=== PATIENT | male | born 1990 | race Two or more races ===

== ENCOUNTER 2016-11-27 01:34 | Emergency (ER) | payer OTHER ==
[~2016-11-27] VITALS: Ht 167.6 cm; Wt 63.5 kg
[2016-11-27 02:23] LABS: CONDITION Y; Hematocrit 41.2 % (41.0-53.0); Mean Corpuscular Hemoglobin 30.3 pg (28.0-32.0); Mean Corpuscular Hgb Conc. 33.9 g/dL (32.0-36.0); Mean Corpuscular Volume 89.5 fL (80.0-100.0); Mean Platelet Volume 8.6 fL (7.4-10.4); Platelet Count (auto) 255 10^3/uL (140-450); Red Cell Distribution Width 14.6 % (11.6-16.0); White Blood Cell 5.2 10^3/uL (4.4-10.8)
[2016-11-27 02:28] LABS: Metamyelocytes % 0; Myelocytes % 0; Promyelocytes % 0; Reactive Lymphocytes 0
[2016-11-27 02:31] LABS: Urine Bilirubin Negative (Negative); Urine Color Yellow (Yellow); Urine Glucose Normal (Normal); Urine Granular Cast MOD /lpf (0); Urine Hyaline Cast FEW /lpf (0 - 2); Urine Ketone Negative (Negative); Urine Mucus FEW (None Seen); Urine Nitrite Negative (Negative); Urine RBC 4 /hpf (0 - 3); Urine Squamous Epithelial Cell FEW /hpf (<5); Urine Urobilinogen Normal (Negative); Urine pH 5.5 (5.0-8.0)
[2016-11-27 02:32] LABS: Urine Blood 1+ /uL (Negative)
[2016-11-27 02:37] LABS: Albumin 4.1 g/dL (3.4-5.0); BUN/Creatinine Ratio 13.8; Potassium 4.1 mmol/L (3.5-5.1)
[2016-11-27 02:40] LABS: Bilirubin, Total 0.7 mg/dL (0.2-1.0)
[2016-11-27 02:41] LABS: Platelet Estimate Adequate; RBC Morphology Normal
[2016-11-27 08:42] VITALS: BP 118/98
[2016-11-27] MEDS ORDERED: TETANUS-DIPTH-ACEL PERTUSSIS 0.5ML SYRG IM ONE (09:15)
== END 2016-11-27 09:12 | disposition home or self-care (01) ==
LOC: ER 01:34
DX: S20.211A Contusion of right front wall of thorax, initial encounter (principal); F10.120 Alcohol abuse with intoxication, uncomplicated; F17.210 Nicotine dependence, cigarettes, uncomplicated; J45.909 Unspecified asthma, uncomplicated; V49.49XA Driver injured in collision with other motor vehicles in traffic accident, initial encounter; Y93.89 Activity, other specified; Y99.8 Other external cause status; Y92.410 Unspecified street and highway as the place of occurrence of the external cause
CPT/HCPCS: 36415; 70450; 71010; 71101; 71250; 72125; 74176; 80053; 80307; 80320; 81001; 85007; 85027

== ENCOUNTER 2021-12-01 20:56 | Emergency (ER) | payer MEDICAID, OTHER ==
[~2021-12-01] VITALS: Ht 165.1 cm; Wt 63.5 kg
[2021-12-01 20:56] VITALS: BP 143/96
== END 2021-12-02 04:13 | disposition left against medical advice (07) ==
LOC: ER 20:56
DX: S61.012A Laceration without foreign body of left thumb without damage to nail, initial encounter (principal); Z53.21 Procedure and treatment not carried out due to patient leaving prior to being seen by health care provider; W26.8XXA Contact with other sharp object(s), not elsewhere classified, initial encounter; Y93.89 Activity, other specified; Y92.89 Other specified places as the place of occurrence of the external cause; Y99.8 Other external cause status

== ENCOUNTER 2022-02-05 04:27 | Emergency (ER) | payer MEDICAID ==
[~2022-02-05] VITALS: Ht 165.1 cm; Wt 68.2 kg
[2022-02-05 04:36] VITALS: BP 127/93
[2022-02-05 05:54] LABS: Basophils # (auto) 0 10 ^3/uL (0-0.2); Basophils % (auto) 0.7 % (0.0-2.0); Eosinophils # (auto) 0.2 10 ^3/uL (0-0.8); Eosinophils % (auto) 2.5 % (0.0-7.0); Hematocrit 40.7 % (41.0-53.0); Hemoglobin 13.5 g/dL (13.5-17.5); Lymphocytes # (auto) 1.6 10 ^3/uL (0.4-5.4); Lymphocytes % (auto) 23.7 % (10.0-50.0); Mean Corpuscular Hemoglobin 29.5 pg (28.0-32.0); Mean Corpuscular Hgb Conc. 33.3 g/dL (32.0-36.0); Mean Corpuscular Volume 88.6 fL (80.0-100.0); Monocytes # (auto) 0.7 10 ^3/uL (0-1.3); Monocytes % (auto) 9.9 % (0.0-12.0); Neutrophils # (auto) 4.3 10 ^3/uL (1.6-8.6); Neutrophils % (auto) 63.2 % (37.0-80.0); Red Blood Cells 4.59 10^6/uL (4.5-5.90); Red Cell Distribution Width 13.6 % (11.8-14.3); White Blood Cell 6.9 10^3/uL (4.4-10.8)
[2022-02-05 05:59] LABS: Albumin 4.1 g/dL (3.4-5.0); Calcium 8.5 mg/dL (8.5-10.1); Potassium 4.1 mmol/L (3.5-5.1)
[2022-02-05 06:03] LABS: BUN/Creatinine Ratio 16.7; Bilirubin, Total 0.9 mg/dL (0.2-1.0); Total Protein 7.7 g/dL (6.4-8.2)
== END 2022-02-05 10:41 | disposition left against medical advice (07) ==
LOC: ER 04:27
DX: R10.9 Unspecified abdominal pain (principal); Z53.21 Procedure and treatment not carried out due to patient leaving prior to being seen by health care provider
CPT/HCPCS: 36415; 74176; 80053; 83690; 85025

== ENCOUNTER 2022-12-27 10:24 | Emergency (ER) | payer BC, MEDICAID ==
[~2022-12-27] VITALS: Ht 165.1 cm; Wt 65.9 kg
[2022-12-27 11:19] VITALS: BP 156/99; PULSE 89; RESP 16; TEMP 97.8; O2SAT 99
[2022-12-27] MEDS ORDERED: TETANUS-DIPTH-ACEL PERTUSSIS 0.5ML SYR Tdap IM ONE (11:45)
== END 2022-12-27 11:53 | disposition home or self-care (01) ==
LOC: ER 10:24
DX: S61.012A Laceration without foreign body of left thumb without damage to nail, initial encounter (principal); J45.909 Unspecified asthma, uncomplicated; F17.210 Nicotine dependence, cigarettes, uncomplicated; F10.90 Alcohol use, unspecified, uncomplicated; W45.8XXA Other foreign body or object entering through skin, initial encounter; Y93.89 Activity, other specified; Y92.89 Other specified places as the place of occurrence of the external cause; Y99.8 Other external cause status; Y90.0 Blood alcohol level of less than 20 mg/100 ml
CPT/HCPCS: 12001